=== PATIENT | female | born 1985 | race African-American/Black ===

== ENCOUNTER 2023-06-30 16:52 | Emergency (ER) | payer OTHER ==
[~2023-06-30] VITALS: Ht 162.6 cm; Wt 61.0 kg
[2023-06-30] MEDS: LACTATED RINGER'S 1,000 ML IV ONE (17:25)
[2023-06-30] MEDS: ONDANSETRON HCL INJ 2MG/ML 2ML 2 MG/ML VIAL IV ONE (17:25)
[2023-06-30] MEDS: FAMOTIDINE 20 MG/2 ML VIAL IV ONE (17:25)
[2023-06-30] MEDS ORDERED: FAMOTIDINE 20 MG/2 ML VIAL IV ONE (17:27)
[2023-06-30] MEDS ORDERED: ONDANSETRON HCL INJ 2MG/ML 2ML 2 MG/ML VIAL ONE (17:27)
[2023-06-30] MEDS ORDERED: LACTATED RINGER'S 1,000 ML ONE (17:27)
[2023-06-30] MEDS: ACETAMINOPHEN 325 MG TAB PO ONE (17:47)
[2023-06-30] MEDS ORDERED: ACETAMINOPHEN 325 MG TAB ONE (17:52)
[2023-06-30] MEDS ORDERED: MAALOX MAXIMUM355 ML PO (17:56)
[2023-06-30] MEDS ORDERED: ONDANSETRON ODT4 MG PO (17:56)
[2023-06-30] MEDS ORDERED: OMEPRAZOLE40 MG PO (17:56)
[2023-06-30 18:23] VITALS: BP 123/89; PULSE 72; RESP 18; TEMP 98.1; O2SAT 98
== END 2023-06-30 18:41 | disposition home or self-care (01) ==
LOC: FSED 16:56
DX: R10.10 Upper abdominal pain, unspecified (principal); K29.70 Gastritis, unspecified, without bleeding; R11.0 Nausea; F17.210 Nicotine dependence, cigarettes, uncomplicated
CPT/HCPCS: 74176; 81003; 81025; 99282; J2405; J7121

== ENCOUNTER 2024-03-22 09:05 | Emergency (ER) | payer BC ==
[~2024-03-22] VITALS: Ht 162.6 cm; Wt 63.0 kg
[~2024-03-22 09:05] MED LIST: AZITHROMYCIN250 MG PO; MAALOX MAXIMUM355 ML PO; OMEPRAZOLE40 MG PO; ONDANSETRON ODT4 MG PO; PREDNISONE20 MG PO; VENTOLIN HFA18 GM INH
[2024-03-22] MEDS: ACETAMINOPHEN 325 MG TAB PO ONE (09:38)
[2024-03-22] MEDS ORDERED: AZITHROMYCIN250 MG PO (10:10)
[2024-03-22 10:14] VITALS: PULSE 97; RESP 18; TEMP 100.1; O2SAT 98
== END 2024-03-22 10:17 | disposition home or self-care (01) ==
LOC: FSED 09:10
DX: R50.9 Fever, unspecified (principal); J06.9 Acute upper respiratory infection, unspecified; R09.89 Other specified symptoms and signs involving the circulatory and respiratory systems; R05.9 Cough, unspecified; Z11.52 Encounter for screening for COVID-19
CPT/HCPCS: 0223U; 71046; 83518; 87400; 87420; 99284